=== PATIENT | male | born 1975 | race Caucasian/White ===

== ENCOUNTER 2019-02-21 11:34 | Day surgery (SDC) | payer OTHER ==
[2019-02-15 13:01] VITALS: BMI 25.0
[2019-02-21] MEDS ORDERED: oxyCODONE HCL 10 MG SUSTAINED ACTING TABLET PO STA (12:51)
[2019-02-21] MEDS ORDERED: BUPIVACAINE HCL/PF 0.5% (5 MG/ML) 30 ML VIAL IJ ONE (13:28)
[2019-02-21] MEDS ORDERED: MIDAZOLAM HCL 2 MG/2 ML SINGLE DOSE VIAL ONE (13:28)
--- NOTE | 2019-02-21 13:44 | HP ---
History & Physical Update - History History: No Change - Physical Physical: No Change - Assessment Assessment: No Change - Plan Plan: No Change (Initial H&P is located in his paper chart. Complete/accurtae and UTD. No new complaints or medications. C/o LBP with LE radiculopathy (L>R). Here today for elective L5-S1 laminectomy)
[2019-02-21] MEDS ORDERED: methylPREDNISolone ACET (DEPO) 40 MG/1 ML VIAL ONE (13:53)
[2019-02-21] MEDS ORDERED: GUM MASTIC/STORAX/MSAL/ALCOHOL 1 DRP DROPSBTL MC ONE (13:53)
[2019-02-21] MEDS ORDERED: LIDOCAINE 1%/EPI 1:100000 (20 ML MULTI DOSE VIAL) ONE (13:53)
[2019-02-21] MEDS ORDERED: PROPOFOL 20 ML ONE ×3 (14:24)
[2019-02-21] MEDS ORDERED: LIDOCAINE 1%/EPI 1:100000 (20 ML MULTI DOSE VIAL) INF ONE (14:30)
[2019-02-21] MEDS ORDERED: methylPREDNISolone ACET (DEPO) 40 MG/1 ML VIAL IM ONE (15:26)
--- NOTE | 2019-02-21 15:44 | OP ---
Operative Note - Note: Operative Date: 02/21/19 Pre-Operative Diagnosis: Chronic LBP with LE radiculopathy Operation: L4-S1 laminectomy (bilateral) Post-Operative Diagnosis: Same as Pre-op Surgeon: Manuel Moran Vascular Ultrasound Technician: Rajat Goode Anesthesiologist/CARGO SURVEYOR: Tan Petit Anesthesia: Spinal Specimens Removed: None. Estimated Blood Loss (mls): 20 Fluid Volume Replaced (mls): 1,300 Operative Report Dictated: Yes
--- NOTE | 2019-02-21 15:45 | SURG ---
Surgery Shirt Cleaner Note Shirt Cleaner: Rajat Goode PA-C Date of Service: 02/21/19 Diagnosis: Chronic LBP with LE radiculopathy Procedure: L4-S1 laminectomy (bilateral) I was present for the entirety of the operative procedure. For further detail, please refer to operative report. Visit type - Case Type Case Type: Scheduled - New patient This patient is new to me today: Yes Date on this admission: 02/21/19
[2019-02-21] MEDS ORDERED: oxyCODONE HCL 5 MG TABLET PO PRN ×2 (15:57)
[2019-02-21] MEDS ORDERED: PROMETHAZINE HCL 25 MG/1 ML VIAL IVPUSH PRN (15:57)
[2019-02-21] MEDS ORDERED: ONDANSETRON 4 MG/2 ML VIAL IVPUSH PRN (15:57)
[2019-02-21 16:52] VITALS: TEMP 98.3
--- NOTE | 2019-02-21 18:03 | OP ---
DATE OF OPERATION: 02/21/2019 PREOPERATIVE DIAGNOSIS: Spinal stenosis L5-S1. POSTOPERATIVE DIAGNOSIS: Spinal stenosis L5-S1. PROCEDURE PERFORMED: Laminectomy L5-S1. SURGEON: Manuel Moran MD BOOKBINDING MACHINE OPERATOR: OVIDIO Kaiser ESTIMATED BLOOD LOSS: 50 mL. INTRAVENOUS FLUIDS: Per anesthesia. ANESTHESIA: Spinal/TLIP. COMPLICATIONS: There were none. DISPOSITION: Patient was brought to PACU in stable condition. INDICATIONS FOR SURGERY: Patient is a 43-year-old gentleman who has been suffering from pain from his back down his legs. X-rays and MRI were completed, which noted that he had spinal stenosis at L5-S1. He had gone through an exhaustive course of treatment for this, which included medications, physical therapy as well as injections. Unfortunately, his pain continued to persist despite all this. At this point, risks, benefits, and alternatives were discussed, and the patient consented to surgery. DESCRIPTION OF PROCEDURE: Patient was brought to the operating room by the anesthesia staff. After appropriate patient identification was performed, spinal anesthesia was given. A TLIP block was also given. The patient was able to position himself prone onto the OR table with all areas and bony prominences well padded at this time. Two needles were placed into his back to ar off the L5-S1 segments. X-ray was taken to confirm this was correct. Needle was removed, and 10 mL of lidocaine with epinephrine was injected into his back. At this time, his back was prepped and draped in a sterile manner. At this point, a time-out was completed. An incision was made from the top of L5 down to the bottom of S1. Dissection was carried down to the fascia. Fascia was then split at this time, and appropriate retractor was then placed in. A spinal needle was placed onto the L5 lamina to ar off the L5-S1 level. X-rays was taken to confirm this was correct. Needle was removed, and the interspinous ligament at L5-S1 was removed. Portions of the L5-S1 spinous processes were removed. Portions of the L5-S1 ligament were removed. Flavum was identified. It was removed. A complete decompression was performed such that by the end of the procedure the S1 nerve root appeared to be well decompressed. All bleeding was well controlled at this time. Steroids was placed over the nerve root. FloSeal was placed over that. The fascia was closed with a No. 1 Vicryl suture. The subcutaneous tissue was closed with 2-0 Vicryl suture. Skin was closed with 3-0 Monocryl suture. Dermabond was applied. Steri-Strips were applied. A sterile dressing was applied. Patient was placed supine on the OR bed. Brought to the PACU in stable condition. John IREL[place]/[id number] MTDD
[2019-02-21 19:07] VITALS: PULSE 64
[2019-02-21 19:43] VITALS: BP 104/54
== END 2019-02-21 20:02 | disposition home or self-care (01) ==
LOC: FASU 11:34
PROVIDERS: ATTEND Orthopaedic Surgery Orthopaedic Surgery of the Spine
PROC: 01NB0ZZ Release Lumbar Nerve, Open Approach (ICD-10-PCS; principal; 2019-02-21 14:45)
DX: M48.07 Spinal stenosis, lumbosacral region (principal)
CPT/HCPCS: 72100-TC-FY; 94760